=== PATIENT | male | born 1985 | race Caucasian/White ===

== ENCOUNTER 2017-01-22 19:19 | Emergency (ER) ==
[2017-01-22 19:23] VITALS: BP 224/92
[2017-01-22] MEDS ORDERED: KEFZOL IM ONE (19:50)
--- NOTE | 2017-01-22 19:51 | PROVIDER DOCUMENTATION ---
HPI-Musculoskeletal Pain/Inj - GENERAL Chief Complaint: Extremity Pain Stated Complaint: RT FOOT TOE PAIN Time Seen by Provider: 01/22/17 19:26 Source: patient - HX OF PRESENT ILLNESS-MUSKULOSKELTAL Nature of Presenting Problem: Pt is a 31 y/o M c chief complaint of swollen, painful R second toe. Pt states he noticed the toe was swollen today when he was taking a bath. Pt has a h/o diabetic neuropathy and does not recall injuring his toe. Pt has minimal pain. He recently had 3 toes amputated from his L foot. On arrival, pt is in minimal distress. Review of Systems - Adult - REVIEW OF SYSTEMS - ADULT Constitutional: reports: no symptoms reported. denies: chills, fatique Eyes: reports: no symptoms reported. denies: blurred vision, double vision Ears, Nose, Mouth & Throat: reports: no symptoms reported. denies: ear pain, nose pain, throat pain Cardiovascular: reports: no symptoms reported. denies: chest pain, orthopnea Respiratory: reports: no symptoms reported. denies: cough, shortness of breath Gastrointestinal: reports: no symptoms reported. denies: abdominal pain, nausea Genitourinary: reports: no symptoms reported. denies: dysuria, hematuria Musculoskeletal: reports: bone pain, joint pain, joint swelling Integumentary: reports: no symptoms reported. denies: itching, rash Neurological: reports: paresthesia. denies: numbness Psychiatric: reports: no symptoms reported. denies: anxiety, emotional problems Endocrine: reports: no symptoms reported. denies: cold intolerance, heat intolerance Hematologic/Lymphatic: reports: no symptoms reported. denies: blood clots, low blood count Allergic/Immunologic: reports: no symptoms reported. denies: allergic reactions , food allergy All Other Systems: Reviewed and Negative Past History - Adult - PAST MEDICAL HISTORY-ADULT Review of Records: reports: Old Records Reviewed, Nursing Assessment Review, Medications Reviewed, Social history reviewed & non-contributory. Major Childhood Illnesses: reports: denies history Cardiovascular: reports: [place] Respiratory: reports: denies history Gastrointestinal: reports: denies history Obstetrical/Gynecological: reports: denies history Genitourinary: reports: denies history Musculoskeletal: reports: denies history Neurological: reports: other (Neuropathy) Psychiatric: reports: bipolar, depression Endocrine/Immune: reports: Diabetes Diabetes Type: Type 2 Diabetes controlled by:: Insulin Dependent Other Conditions: reports: denies history - PRIOR SURGERIES/PROCEDURES Surgical/Procedure History: reports: recent surgery, cardiac stent, orthopedic ( extremity) (toe amputation), other (Defibrilator) - IMMUNIZATION STATUS Childhood Immunizations: See Nurse Assessment Flu Vaccine: See Nurse Assessment - FAMILY HISTORY Family History: reviewed, not pertinent - SOCIAL HISTORY Smoking: denies Substance Use: none/never Alcohol Use Frequency: never Living Situation: family Physical Exam-Injury Related - Physical Exam-Injury Related Initial Vital Signs Reviewed: Yes General Appearance: appears well, alert, no apparent distress Eyes: PERRL/EOMI, pink conjunctivae Head, Ears, Nose, Mouth & Throat: normocephalic/atraumatic, moist mucous membranes, normal ENT inspection Neck: non-tender, full range of motion, supple Respiratory: chest non-tender, lungs clear, normal breath sounds Cardiovascular: normal peripheral pulses, regular rate, rhythm, no edema Progress - PLAN OF CARE/RESULTS Progress/Plan/Lab Results: Orders Category Date Time Status Crutches DIRECTED Care 01/22/17 19:50 Active Post-Op Shoe DIRECTED Care 01/22/17 19:50 Active FOOT COMPLETE RIGHT [RAD] Stat Exams 01/22/17 19:26 Taken CefAZOLIN [Kefzol] Med 01/22/17 19:50 Discontinued 1 gm IM NOW ONE Vital Signs - 24 hr 01/22/17 19:22 Temperature 98.3 F Pulse Rate 115 H Respiratory 20 Rate Blood Pressure 224/92 O2 Sat by Pulse 100 Oximetry Departure - Departure Time of Disposition Order: 19:47 DIAGNOSIS: Diabetic foot Toe fracture, right Qualifiers: Encounter type: initial encounter Toe: lesser toe Fracture type: closed Phalanx : proximal Fracture alignment: displaced Qualified Code(s): S92.511A - Displaced fracture of proximal phalanx of right lesser toe(s), initial encounter for closed fracture Disposition: HOME 01 Certified Medical Emergency: Emergent Condition: Stable Additional Instructions: ED Follow Up Instructions: You have been treated by a care provider in the Emergency Department. These instructions are being provided to you so you can have an understanding of how to care for yourself upon discharge. Upon discharge from the Emergency Department, you are responsible for making arrangements for follow-up care by a physician of your choice. Take all prescribed medications as directed. Return to the Emergency Department immediately for any new or worsening symptoms. You may call the Physician Referral phone number at [phone] to obtain a list of Physicians who are taking new patients. Prescriptions: Clindamycin [Cleocin] 150 mg PO Q6HR #30 capsule Hydrocodone/APAP 7.5 mg/325 mg [[place]-7.5] 1 each PO Q6H PRN PRN #10 tablet PRN Reason: Pain Referrals: None,PCP [Primary Care Provider] - [facility] [Provider Group] - Call for Appoint. 1-2days (FOLLOW UP WITH ORTHO ON TUESDAY.) Attestation - Physician/ MARTÍNEZ Attestation Patient care was provided by Advanced Practice Provider:: Yes Advanced Practice Provider:: Slava Robertson Advanced Practice Provider documentation review:: The Mid-level provider documentation, treatment plan and medical decision making was reviewed by the physician who agrees with all treatment and medical decision making by the MLP.
[2017-01-22] MEDS ORDERED: STERILE WATER INJ. ONE (19:59)
--- NOTE | 2017-01-23 07:40 | Diag Imaging Result Document ---
PROCEDURE NAME: FOOT COMPLETE RIGHT - 01/22/2017 RIGHT FOOT THREE VIEWS: FINDINGS: There is a comminuted fracture to the proximal and mid proximal phalanx on the 2nd toe. There are multiple fracture fragments with displacement. Fracture does extend into the metatarsophalangeal joint. Soft tissue swelling is present. IMPRESSION: Comminuted fracture to the proximal 2nd toe.
== END 2017-01-22 20:45 | disposition home or self-care (01) ==
LOC: ED 19:19
DX: S92.511A Displaced fracture of proximal phalanx of right lesser toe(s), initial encounter for closed fracture (principal); E11.40 Type 2 diabetes mellitus with diabetic neuropathy, unspecified; M79.674 Pain in right toe(s); M25.474 Effusion, right foot; R20.9 Unspecified disturbances of skin sensation; I25.2 Old myocardial infarction; F32.9 Major depressive disorder, single episode, unspecified; F31.9 Bipolar disorder, unspecified; Z79.899 Other long term (current) drug therapy; Z95.5 Presence of coronary angioplasty implant and graft; Z95.810 Presence of automatic (implantable) cardiac defibrillator; Z79.4 Long term (current) use of insulin; Z79.82 Long term (current) use of aspirin; Z89.422 Acquired absence of other left toe(s)
CPT/HCPCS: J0690

== ENCOUNTER 2019-12-04 09:37 | Inpatient (IN) ==
[2019-12-04] MEDS ORDERED: ASPIRIN PO ONE (09:51)
[2019-12-04 10:34] LABS: BASO# 0.12 X1000 (0.0-0.2); BASO% 0.9 % (0.0-0.8); EOS# 0.41 X1000 (0.0-0.7); EOS% 3.2 % (0.0-10.0); HEMATOCRIT 49.4 % (42.0-52.0); HEMOGLOBIN 16.4 g/dL (14.0-18.0); IMM GRAN# 0.14 X1000 (0.0-0.04); IMM GRAN% 1.1 % (0.0-0.5); LYMPH# 3.54 X1000 (1.2-3.4); LYMPH% 27.8 % (20.5-51.1); MCH 28.1 PG (27-31); MCHC 33.2 g/dL (33-37); MCV 84.6 FL (81-99); MONO% 8.6 % (1.7-9.3); MPV 10.5 FL (7.4-10.4); NEUT# 7.41 X1000 (1.4-6.5); NEUT% 58.4 % (42.2-75.2); PLT 281 X1000 (130-400); RBC 5.84 XMIL (4.7-6.1); RDW 13.3 % (11.5-14.5); WBC 12.72 X1000 (4.8-10.8)
--- NOTE | 2019-12-04 10:37 | Diag Imaging Result Doc PS360 ---
EXAM: CHEST-2 VIEWS HISTORY: chest pain TECHNIQUE: Three views COMPARISON: 11/13/2018 FINDINGS: The lungs are well expanded. The heart is not enlarged. Left pacemaker. The vessels are not distended. There are no infiltrates. No pleural effusions. IMPRESSION: No acute abnormality. Electronically signed by Yousuf Aggarwal 12/04/2019 10:35 AM
[2019-12-04 10:48] LABS: INR 0.88; PTT 27.1 Seconds (22.3-41.8)
[2019-12-04 10:55] LABS: AGAP 13; ALB/GLOB RATIO 1.4; ALBUMIN 3.2 g/dL (3.5-5.0); ALKALINE PHOSPHATASE 72 U/L (32-122); BUN 16 mg/dL (8-22); CALCIUM 8.6 mg/dL (8.8-10.2); CHLORIDE 99 mmol/L (98-107); CK PROFILE 130 U/L (24-204); COSMO 276; CREATININE 1.1 mg/dL (0.7-1.2); ESTIMATED GFR > 60; GLUCOSE 149 mg/dL (70-104); GOT 14 U/L (10-34); GPT 18 U/L (10-44); POTASSIUM 4.6 mmol/L (3.5-5.1); SODIUM 136 mmol/L (136-145); TCO2 24 mmol/L (25-35); TOTAL PROTEIN 5.5 g/dL (6.3-8.3)
[2019-12-04 10:58] LABS: TOTAL BILIRUBIN < 0.15 mg/dL (0.20-1.00)
--- NOTE | 2019-12-04 11:19 | PROVIDER DOCUMENTATION ---
HPI-General Adult - General Chief Complaint: Chest Pain Stated Complaint: CHEST PAIN Time Seen by Provider: 12/04/19 10:34 Source: patient Allergies/Adverse Reactions: Patient Allergies Allergy/AdvReac Type Severity Reaction Status Date / Time No Known Allergies Allergy Verified 11/27/18 16:52 Home Medications: Home Medication List Medication Instructions Recorded Confirmed Last Taken Type Aspirin [Aspir-Low] 81 mg PO DAILY 01/22/17 12/04/19 12/04/19 History Lisinopril 40 mg PO DAILY 01/22/17 12/04/19 12/04/19 History Metformin [Glucophage] 1,000 mg PO BID CC 01/22/17 12/04/19 12/04/19 History Amlodipine Besylate 10 mg PO DAILY 09/23/18 12/04/19 12/04/19 History Gabapentin 300 mg PO TID 09/23/18 12/04/19 12/01/19 History Metoprolol Succinate 200 mg PO DAILY 09/23/18 12/04/19 1 Week Ago History ~11/27/19 Venlafaxine HCl [Venlafaxine HCl 75 mg PO DAILY 09/23/18 12/04/19 12/04/19 History ER] Venlafaxine HCl [Venlafaxine HCl 150 mg PO DAILY 09/23/18 12/04/19 12/04/19 History ER] Hydrocodone/Acetaminophen [[place] 1 ea PO Q6H PRN #15 tab 10/11/18 12/04/19 Unknown Rx 7.5-325 Tablet] Insulin Regular, Human [Novolin R] See Protocol SQ BID 11/13/18 12/04/19 12/04/19 History Ampicillin 2 gm/Ns 2 gm IV Q6H #168 ivpb 11/22/18 12/04/19 Unknown Rx - History of Present Illness -Gen Adult Nature of Presenting Problems: 34 YEAR OLD MALE WITH MEDICAL HISTORY OF 2 CA IN 2009 WITH 1 STENT PLACEMENT , HTN, DM I AND DEPRESSION CAME IN TODAY WITH CONCERN OF CHEST PAIN THAT STARTED TUESDAY AND LASTED FOR 2 HOURS INITIALLY WITH SHARP/STABBING SENATION THAT'S NONRADIATING AND 10/10. STATES HE ALSO HAD ANOTHER ONE THIS MORNING STARTING AT 7AM AND CONTINUED TO HAVE IT RIGHT NO AND ITS NON RATING BUT ONLY 5/10 RIGHT NOW. NOTHING MADE IT BETTER OR WORSE. FATHER WITH CA AT AGE 50. PER PATIENT, ITS HIS INDEX CHEST PAIN. Review of Systems - Adult - REVIEW OF SYSTEMS - ADULT ROS:: unobtainable per condition Constitutional: reports: no symptoms reported Eyes: reports: no symptoms reported Ears, Nose, Mouth & Throat: reports: no symptoms reported Cardiovascular: reports: chest pain Respiratory: reports: no symptoms reported Gastrointestinal: reports: no symptoms reported Genitourinary: reports: no symptoms reported Musculoskeletal: reports: no symptoms reported Integumentary: reports: no symptoms reported Neurological: reports: no symptoms reported Psychiatric: reports: no symptoms reported Past History - Adult - PAST MEDICAL HISTORY-ADULT Review of Records: reports: Old Records Reviewed Major Childhood Illnesses: reports: denies history Cardiovascular: reports: HTN, [place] Respiratory: reports: denies history Gastrointestinal: reports: denies history Obstetrical/Gynecological: reports: denies history Genitourinary: reports: denies history Musculoskeletal: reports: denies history Neurological: reports: other (Neuropathy) Psychiatric: reports: bipolar, depression Endocrine/Immune: reports: Diabetes Other Conditions: reports: denies history - PRIOR SURGERIES/PROCEDURES Surgical/Procedure History: reports: recent surgery, appendectomy, cardiac stent , 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), other (Defibrilator) - IMMUNIZATION STATUS Childhood Immunizations: See Nurse Assessment Flu Vaccine: See Nurse Assessment - FAMILY HISTORY Family History: reviewed, not pertinent Physical Exam-General - PHYSICAL EXAM-ADULT Initial Vital Signs Reviewed: Yes - CONSTITUTIONAL General Appearance: appears well, alert, no apparent distress - EYES Eyes: PERRL/EOMI - HEAD, EARS, NOSE, MOUTH & THROAT HENMT: normocephalic/atraumatic, moist mucous membranes, normal ENT inspection - NECK Neck: non-tender, full range of motion, supple - RESPIRATORY Respiratory: chest non-tender, lungs clear, normal breath sounds, no pleuratic chest pain, no respiratory distress, no accessory muscle use - CARDIOVASCULAR Cardiovascular: normal peripheral pulses, regular rate, rhythm, no edema, no gallop, no JVD - GASTROINTESTINAL (ABDOMEN) Abdominal Exam: normal bowel sounds, non tender, soft, no organomegaly, no puls atile mass - MUSCULOSKELETAL Back Exam: normal inspection, no CVA tenderness, no vertebral tenderness Extremity: normal range of motion, non-tender, normal gait, normal inspection - SKIN Integumentary: normal color, normal turgor, warm/dry - NEUROLOGIC Neurologic: grossly normal - PSYCHIATRIC Psych/Mental Status: normal mood/affect, normal thought content, normal thought process, oriented x 3 Progress - PLAN OF CARE/RESULTS Progress/Plan/Lab Results: Vital Signs - 8 hr 12/04/19 09:49 Temperature 98.5 F Pulse Rate 110 H Respiratory Rate 17 Blood Pressure 246/124 O2 Sat by Pulse Oximetry 96 Laboratory Results - last 24 hr 12/04/19 12/04/19 12/04/19 10:08 10:08 10:08 WBC 12.72 H RBC 5.84 Hgb 16.4 Hct 49.4 MCV 84.6 MCH 28.1 MCHC 33.2 RDW Std Deviation 13.3 Plt Count 281 MPV 10.5 H Immature Gran % (Auto) 1.1 H Neut % (Auto) 58.4 Lymph % (Auto) 27.8 [place] % (Auto) 8.6 Eos % (Auto) 3.2 Baso % (Auto) 0.9 H Immature Gran # (Auto) 0.14 H Neut # (Auto) 7.41 H Lymph # (Auto) 3.54 H [place] # (Auto) 1.10 H Eos # (Auto) 0.41 Baso # (Auto) 0.12 PT 12.0 INR 0.88 PTT (Actin FS) 27.1 Sodium 136 Potassium 4.6 Chloride 99 Carbon Dioxide 24 L Anion Gap 13 BUN 16 Creatinine 1.1 Estimated GFR/1.73 m2 > 60 BUN/Creatinine Ratio 15 Glucose 149 H Calculated Osmolality 276 Calcium 8.6 L Total Bilirubin < 0.15 L AST 14 ALT 18 Alkaline Phosphatase 72 Creatine Kinase 130 Troponin T High Sens Total Protein 5.5 L Albumin 3.2 L Globulin 2.3 Albumin/Globulin Ratio 1.4 12/04/19 10:08 WBC RBC Hgb Hct MCV MCH MCHC RDW Std Deviation Plt Count MPV Immature Gran % (Auto) Neut % (Auto) Lymph % (Auto) [place] % (Auto) Eos % (Auto) Baso % (Auto) Immature Gran # (Auto) Neut # (Auto) Lymph # (Auto) [place] # (Auto) Eos # (Auto) Baso # (Auto) PT INR PTT (Actin FS) Sodium Potassium Chloride Carbon Dioxide Anion Gap BUN Creatinine Estimated GFR/1.73 m2 BUN/Creatinine Ratio Glucose Calculated Osmolality Calcium Total Bilirubin AST ALT Alkaline Phosphatase Creatine Kinase Troponin T High Sens 10 Total Protein Albumin Globulin Albumin/Globulin Ratio Orders Category Date Time Status Cardiac Monitoring DIRECTED Care 12/04/19 09:51 Active Oxygen Therapy- ED Nursing DIRECTED Care 12/04/19 09:51 Active Saline Loc NOW Care 12/04/19 09:51 Active CHEST-2 VIEWS [RAD] Stat Exams 12/04/19 09:51 Completed CBC WITH ELECTRONIC DIFF [HEME] Stat Lab 12/04/19 10:08 Completed CK PROFILE [SP CHEM] Stat Lab 12/04/19 10:08 Completed COMPREHENSIVE METABOLIC PANEL [CHEM] Stat Lab 12/04/19 10:08 Completed PRO B-NATRIURETIC PEPTIDE Stat Lab 12/04/19 10:08 Received PROTIME WITH INR [COAG] Stat Lab 12/04/19 10:08 Completed PTT [COAG] Stat Lab 12/04/19 10:08 Completed TROPONIN T HIGH SENSITIVITY Stat Lab 12/04/19 10:08 Completed Aspirin Med 12/04/19 09:51 Discontinued 325 mg PO NOW ONE CP/SOB/Palp >45 yrs of Age Stat Oth 12/04/19 09:51 Ordered EKG [EKG] Stat Ther 12/04/19 09:51 Ordered Result Diagrams: 12/04/19 10:08 12/04/19 10:08 - REASSESSMENT Reassessment #1 Time Reassessed: 11:21 Status: other (HEART SCORE: H (1)E(0)A(0)R(2)T(0); I WILL REPEAT SECOND SET PATIENT IS HIGH RISK.) Reassessment #2 Time Reassessed: 13:03 Status: other (PENDING TROPONIN) Reassessment #3 Time Reassessed: 15:27 Status: other (SPOKE TO HOSPITALIST PERIPHERAL EDP EQUIPMENT OPERATOR WHO STATES PATIENT IS CLEAR FOR D/C AND OUTPATIENT NM STUDY. SPOKE TO DR. RODRIGUEZ; WHO STATES HE WILL COME AN EVALUATE THE PATIENT. APPRECIATE DR. RODRIGUEZ'S ASSISTANCE.) Reassessment #4 Time Reassessed: 19:43 Status: other (THERE WAS A MISCOMMUNICATION; PATIENT WAS SEEN BY DR. RODRIGUEZ WHO TOLD ME HE WANTS PATIENT BE ADMITTED TO THE HOSPITALIST TEAM SO HE CAN PERFORM CARDIAC CATH TOMORROW. WHILE DR. RODRIGUEZ WAS DOWN HERE IN THE ER EVALUATING THE PATIENT, I SAW HIM TALKING TO DR. JEFFERY AND I THOUGHT HE WAS TALKING DR. JEFFERY REGARING THE PATIENT; UNFORTNATLY, I WAS WRONG. I HAVE JUST SPOKE TO DR. DAVEY REGARDING THE MISCOMMUNICATION; WHO WILL COME DOWN AND EVALUATE AND ADMIT THE PATIENT. APPRECAITE DR. DAVEY'S ASSISTANCE.) - XRAY 1 XRAY Study: Chest ([facility] - [address] [facility], [address], [place] [address] [facility] - [address] [place] [address] Department of Imaging Patient: HIEU MAURERADM Date: 12/04/19MR#: [id number] : 1985ADM Status: PRE ERAcct#: [id number] Age/Sex: 34/MRoom/Bed: Loc: ED Ordering Physician: Jaime Chaney MD Family Physician: Manoj Reis MD Reason for Procedure: chest pain Signed EXAM: CHEST-2 VIEWS HISTORY: chest pain TECHNIQUE: Three views COMPARISON: 11/13/2018 FINDINGS: The lungs are well expanded. The heart is not enlarged. Left pacemaker. The vessels are not distended. There are no infiltrates. No pleural effusions. IMPRESSION: No acute abnormality. Electronically signed by Yousuf Aggarwal 12/04/2019 10:35 AM 12/04/19 1035 Interpreting Physician: Yousuf Aggarwal MD Dictated Date/Time: 12/04/19 1034 cc: Jaime Chaney MD; Manoj Reis MD) Departure - Departure Date of Disposition Decision: 12/04/19 Time of Disposition Decision: 19:45 DIAGNOSIS: NSTEMI (non-ST elevated myocardial infarction), Hypoglycemia Disposition: ADMITTED INPATIENT 09 Certified Medical Emergency: Emergent Condition: Fair Referrals and Follow-Ups: Manoj Reis MD [Primary Care Provider] - - Critical Care Note This patient required my direct & personal management of CC.: No Attestation - Physician/ MARTÍNEZ Attestation Patient care was provided by Advanced Practice Provider:: No The physician spent face to face time with patient:: Yes Advanced Practice Provider documentation review:: Supervising physician onsite and consulted in the evaluation and care of this patient. The physician did have a face to face encounter with the patient.
[2019-12-04] MEDS ORDERED: CATAPRES PO ONE (12:00)
[2019-12-04] MEDS ORDERED: NITROGLYCERIN SL ONE (13:59)
--- NOTE | 2019-12-04 14:15 | EKG Report ---
Test Performed on : 12/04/2019 2:06:04 PM Test Reason : REPEAT X1 RIGHT NOW Blood Pressure : / mmHG Vent. Rate : 095 BPM Atrial Rate : 095 BPM P-R Int : 170 ms QRS Dur : 110 ms QT Int : 380 ms P-R-T Axes : 047 041 020 degrees QTc Int : 477 ms Normal sinus rhythm. Normal ECG No previous ECGs available Unconfirmed Result
[2019-12-04] MEDS ORDERED: LOVENOX SUBQ SCH (16:00)
[2019-12-04] MEDS ORDERED: LOVENOX SUBQ ONE (16:44)
--- NOTE | 2019-12-04 17:06 | CARDIOLOGY CONSULTATION ---
DATE: 12/04/2019 CHIEF COMPLAINT: Chest pain. HISTORY OF PRESENT ILLNESS: Mr. Saha is a 34-year-old male with a history of type 1 diabetes, peripheral vascular disease. ICD implantation. He is not seeing Cardiology here but apparently was seeing Cardiology when he lived in [place]. I do not have any cardiac history available on the patient. He presented for evaluation of chest pain that lasted around 4 hours this morning. It began with minimal activity while he was doing laundry. It felt stabbing in nature to his left upper chest. There was no exertional component. He did have some sweating with it but he does not think that was significant as he is a hot natured person. He did have some heavy soreness in his left arm associated with the pain. It eventually resolved after around 4 hours. He had a similar episode to this on Tuesday again occurring with minimal exertion. He is not aware of a previous cardiac catheterizations although he has a defibrillator in place. PAST MEDICAL HISTORY: 1. Significant for type 1 diabetes. 2. Hypertension. 3. Diabetic neuropathy. 4. Peripheral vascular disease. It sounds like he had bilateral lower extremity amputations due to a combination of vascular as well as infectious issues. 5. Type 1 diabetes. 6. Hypertension. 7. Depression. SOCIAL HISTORY: He does not smoke but apparently previously did. No alcohol use. FAMILY HISTORY: Significant for hypertension. REVIEW OF SYSTEMS: A 10 system review of systems is negative except for the those things mentioned in HPI. PHYSICAL EXAMINATION: Vital Signs: He is afebrile. His heart rates are in the 90s to low 100s. His blood pressure most recently is 188/93. General: He is in no acute distress. HEENT: Oropharynx is moist. Poor dentition. Eye examination is pink conjunctivae. White sclerae. Neck: Examination shows no obvious thyromegaly or thyroid tenderness. Cardiovascular: He sounds to be in a regular rate and rhythm. He does not have any obvious murmurs. He has no S3. He has no lower extremity edema. He has no palpation to the left anterior. Chest Wall: There is an ICD in place. Chest: Exam is clear bilaterally. He has no increased work of breathing. Abdomen: Soft, nontender, nondistended. He has no obvious organomegaly. Skin: Warm and dry throughout without any rashes. Neurological: He is moving all extremities well. He has no lateralizing deficits. PERTINENT DATA: EKG shows sinus rhythm, otherwise unremarkable. His laboratory data demonstrates a white count of 12.7, hematocrit 49, platelet count of 281,000. His sodium is 136, potassium 4.6, his BUN is 16, creatinine is 1.1. His troponin initially started at 10 and increased 3 hours later to 64. His proBNP is 241. His albumin is 3.2. ASSESSMENT: Mr. Saha is a 34-year-old, type 1 diabetic with peripheral vascular disease who presented with chest pain. PLAN: We will check an echocardiogram. I have recommended cardiac catheterization on this patient given his trend in cardiac enzymes and chest discomfort. Risks, benefits, and alternatives have been explained to the patient. We will initiate him on Lovenox. In addition, we will restart his home medications of aspirin, furosemide, lisinopril and metoprolol. Laboratories will be checked in the morning. cc: Barber Berman MD
[2019-12-04] MEDS: APRESOLINE IV PRN (17:37)
[2019-12-04] MEDS: NITROGLYCERIN TOP SCH (17:46)
[2019-12-04] MEDS ORDERED: LABETALOL IV ONE (19:15)
[2019-12-04] MEDS: TYLENOL PO PRN (23:19)
[2019-12-05] MEDS: NITROGLYCERIN TOP SCH ×4 (01:00→16:57)
[2019-12-05] MEDS: APRESOLINE IV PRN ×2 (03:36→07:42)
[2019-12-05] MEDS ORDERED: LABETALOL IV PRN (04:00)
[2019-12-05] MEDS: MORPHINE IV PRN (06:10)
[2019-12-05 06:28] LABS: BASO# 0.18 X1000 (0.0-0.2); BASO% 1.6 % (0.0-0.8); EOS# 0.33 X1000 (0.0-0.7); EOS% 2.9 % (0.0-10.0); HEMATOCRIT 48.5 % (42.0-52.0); HEMOGLOBIN 16.3 g/dL (14.0-18.0); IMM GRAN# 0.16 X1000 (0.0-0.04); IMM GRAN% 1.4 % (0.0-0.5); LYMPH# 3.14 X1000 (1.2-3.4); LYMPH% 27.2 % (20.5-51.1); MCH 28.5 PG (27-31); MCHC 33.6 g/dL (33-37); MCV 84.9 FL (81-99); MONO# 0.68 X1000 (0.11-0.59); MONO% 5.9 % (1.7-9.3); MPV 10.7 FL (7.4-10.4); NEUT# 7.06 X1000 (1.4-6.5); PLT 263 X1000 (130-400); RBC 5.71 XMIL (4.7-6.1); RDW 13.4 % (11.5-14.5); WBC 11.55 X1000 (4.8-10.8)
[2019-12-05 06:43] LABS: INR 0.87; PROTIME 11.9 Seconds (11.0-16.0)
[2019-12-05 07:28] LABS: AGAP 13; BUN 17 mg/dL (8-22); CALCIUM 8.1 mg/dL (8.8-10.2); CHLORIDE 94 mmol/L (98-107); COSMO 270; CREATININE 0.9 mg/dL (0.7-1.2); ESTIMATED GFR > 60; GLUCOSE 232 mg/dL (70-104); MAGNESIUM 1.7 mg/dL (1.5-2.7); POTASSIUM 4.2 mmol/L (3.5-5.1); SODIUM 130 mmol/L (136-145); TCO2 23 mmol/L (25-35)
[2019-12-05 07:40] LABS: CHOLESTEROL 322 mg/dL (0-200); HDL 25 mg/dL (35-55); TRIGLYCERIDES 1986 mg/dL (39-160)
[2019-12-05] MEDS: ASPIRIN EC PO SCH ×2 (07:42→08:50)
[2019-12-05] MEDS: PRINIVIL PO SCH ×2 (07:43→08:51)
[2019-12-05] MEDS: TOPROL XL PO SCH ×2 (07:43→08:51)
[2019-12-05] MEDS: NORVASC PO SCH ×2 (07:43→08:50)
[2019-12-05] MEDS ORDERED: EFFEXOR XR PO SCH (09:00)
[2019-12-05] MEDS: NORCO-7.5 PO PRN (09:09)
[2019-12-05] MEDS: NEURONTIN PO SCH ×3 (09:09→20:10)
[2019-12-05] MEDS: EFFEXOR XR PO SCH (09:13)
--- NOTE | 2019-12-05 09:39 | PROGRESS NOTE ---
DATE: 12/05/2019 SUBJECTIVE: Patient reports feeling fine. No more episodes of chest pain. OBJECTIVE: Vital Signs: Temperature 97.6 degrees, heart rate 82, respiratory rate 16, blood pressure 199/113, O2 saturation 100% on room air. General: This is a morbidly obese 34-year- old male lying in bed in no acute distress. Cardiovascular: S1, S2 heard. No murmurs, gallops, or rubs. Regular rate and rhythm. Respiratory: Clear bilaterally to auscultation. No work of breathing or using accessory muscles. Abdomen: Soft, nontender to palpation. Bowel sounds present. No organomegaly. Extremities: No clubbing, cyanosis, or edema. Peripheral pulses present in all legs. Neurological: Patient alert and oriented x3. Moves all 4 extremities. LABORATORY DATA: Reviewed. ASSESSMENT AND PLAN: 1. Chest pain. 2. Coronary artery disease. 3. Peripheral vascular disease. 4. Uncontrolled hypertension. 5. Diabetic neuropathy. 6. Depression. At this point, patient has been evaluated by Cardiology and, considering his past medical history, he is going to have left heart catheterization today. Troponin has been getting higher. The patient clinically is doing fine. For uncontrolled hypertension, we are going to start this patient on metoprolol 5 mg IV 6 hours as scheduled. He may need to be on oral beta-blockers. We will continue with sliding scale insulin for diabetes mellitus. We will continue with current treatment for depression. We will see what the left heart catheterization shows today. cc: Raymundo Escalona MD
[2019-12-05] MEDS ORDERED: HEPARIN 1000 UNITS/NS 2,000 UNIT/1,000 ML IV.SOLN ONE ×2 (10:14→12:47)
[2019-12-05] MEDS ORDERED: ZOFRAN IV PRN (10:23)
[2019-12-05] MEDS ORDERED: VERSED ONE (14:35)
[2019-12-05] MEDS ORDERED: ANESTHESIA PB SET 88 IN 5742 ONE (14:36)
[2019-12-05] MEDS ORDERED: MORPHINE ONE ×2 (14:36→15:15)
[2019-12-05] MEDS ORDERED: NS 500 ML ONE (14:36)
--- NOTE | 2019-12-05 15:55 | EKG Report ---
Test Performed on : 12/05/2019 3:47:32 PM Test Reason : S/P Heart cath Blood Pressure : / mmHG Vent. Rate : 088 BPM Atrial Rate : 088 BPM P-R Int : 190 ms QRS Dur : 108 ms QT Int : 388 ms P-R-T Axes : 044 029 025 degrees QTc Int : 469 ms Normal sinus rhythm. Normal ECG When compared with ECG of 04-DEC-2019 14:06, (Unconfirmed) No significant change was found Confirmed by Justin CHRISTIANSON, Conrad Kern ([id number]) on 12/06/2019 12:23:46 PM
[2019-12-05] MEDS ORDERED: NS 1,000 ML IV SCH (16:00)
[2019-12-05] MEDS: LIPITOR PO SCH (20:10)
[2019-12-05] MEDS: LASIX PO SCH (20:10)
--- NOTE | 2019-12-05 21:58 | CARDIOLOGY PROGRESS NOTE ---
DATE: 12/05/2019 SUBJECTIVE: Mr. Saha underwent his cardiac catheterization today. He is not presently having any problems with chest pain. OBJECTIVE: Vital signs: He is afebrile, heart rate 82. Blood pressure is 125/75. General: He is in no acute distress. Cardiovascular: He sounds to be in a regular rate and rhythm. He has no murmurs. He has no obvious hematoma in the right groin. Chest exam: Clear bilaterally. He has no increased work of breathing. Abdomen: Soft, nontender. PERTINENT DATA: His white count is 11.5, hematocrit 48, platelet count is 263,000. Sodium 130, potassium 4.2, BUN 17, creatinine 0.9. His magnesium level is 1.7. His total cholesterol was 322 with an HDL of 25. ASSESSMENT: Mr. Saha is a 34-year-old male who presented with a non-ST elevation myocardial infarction. PLAN: We will initiate load with Effient at 60 mg followed by 10 mg daily. I will stop his nitroglycerin paste and place him on isosorbide mononitrate. We will continue to try to treat his risk factors. He is on high-intensity statin therapy. Tentative plan will be to transfer to [facility] on Tuesday for potential intervention to the ramus branch. cc: Barber Berman MD
[2019-12-06] MEDS: HUMULIN R SUBQ SCH ×5 (01:19→20:20)
[2019-12-06] MEDS ORDERED: LASIX IV ONE (01:45)
[2019-12-06 01:51] LABS: ALLEN TEST YES; BE 1.6 mmoll (-3.0-3.0); BLOOD TYPE ARTERIAL; HCO3-(ACT) 26.2 mmoll (20.0-26.0); METHB 0.7 % (0.0-1.5); O2(CT) 24.1 mL/dL (15.0-23.0); O2HB 97.6 % (95.0-99.0); PCO2(98.6) 39 mmHg (35-45); PO2(98.6) 408 mmHg (60-100); SAMPLE BLOOD; SAO2 99.1 % (95.0-100.0); THB 16.8 g/dL (11.5-17.4); pH(98.6) 7.43 (7.35-7.45)
[2019-12-06 02:02] LABS: URINE SOURCE CATH
[2019-12-06 02:09] LABS: AGAP 9; BUN 13 mg/dL (8-22); CALCIUM 8.7 mg/dL (8.8-10.2); CHLORIDE 97 mmol/L (98-107); COSMO 276; CREATININE 1.1 mg/dL (0.7-1.2); ESTIMATED GFR > 60; GLUCOSE 241 mg/dL (70-104); MAGNESIUM 1.8 mg/dL (1.5-2.7); POTASSIUM 4.8 mmol/L (3.5-5.1); SODIUM 134 mmol/L (136-145); TCO2 28 mmol/L (25-35)
[2019-12-06 02:09] LABS: BILIRUBIN URINE NEGATIVE (NEGATIVE); BLOOD URINE TRACE (NEGATIVE); COLOR STRAW; GLUCOSE URINE 200 mg/dL (NEGATIVE); KETONE URINE NEGATIVE (NEGATIVE); LEUKOCYTES URINE NEGATIVE (NEGATIVE); NITRITE URINE NEGATIVE (NEGATIVE); PROTEIN URINE 200 mg/dL (NEGATIVE); TURBIDITY URINE CLEAR (CLEAR); UR EPITHELIAL CELLS <10 /HPF (<10); URINE BACTERIA NEGATIVE /HPF; URINE RBC <10 /HPF (<10); URINE WBC <10 /HPF (<10); UROBILINOGEN URINE NORMAL (NORMAL)
[2019-12-06 02:14] LABS: HEMOGLOBIN A1C 8.1 % (4.8-6.0)
--- NOTE | 2019-12-06 02:42 | HISTORY AND PHYSICAL ---
PRIMARY CARE PROVIDER: Manoj Reis MD CHIEF COMPLAINT: Chest pain. HISTORY OF PRESENT ILLNESS: Mr. Saha is a 34-year-old male who has a past medical history reportedly of coronary artery disease, status post myocardial infarction with stent placement and ICD implantation. The patient reports that this was placed in [place] in 2009. He also has other past medical history of diabetes mellitus, hypertension, depression, diabetic neuropathy and peripheral vascular disease. The patient states that on Tuesday he did begin having some chest pain. He reports this pain was within his left chest and did radiate down his left arm. He stated this subsided. The patient reports that he had this pain again on Tuesday, though it subsided again as well. He states on Tuesday, it did come back and did remain constant. It did radiate down his left arm. It was sharp left chest pain. He did report associated symptoms of feeling dizzy and lightheaded. He said that on all 3 of these episodes, it came on when he was doing some laundry and washing clothes. I asked the patient if he would consider this is a strenuous activity for him, and he said yes. He does have bilateral fctjb-ljr-ygvl amputations noted secondary to peripheral vascular disease and diabetic foot wounds, and he states that doing laundry is a strenuous activity for him, given his limited mobility. He denies any headache, shortness of breath or cough. He denies any abdominal pain. He denies any nausea, vomiting or diarrhea. The patient reports he does have some problems with chronic constipation and does normally have a bowel movement every 2-3 days. He did have a bowel movement this morning. He denies any hematochezia or melena. He denies any dysuria or urinary frequency. The patient does have some diabetic neuropathy, but other than this he does not report any new onset of pain, numbness, tingling or swelling in extremities. Upon evaluation in the ER he was noted to have initially a troponin that was within normal limits, though throughout his ER stay this did continue to increase, up to a point of 117 on the troponin T high-sensitivity. He still is reporting some intermittent chest pain but this is improved with morphine. EKG showed normal sinus rhythm at a rate of 95 with a QTc of 477. Chest x-ray showed no acute abnormality. The patient did take an aspirin, a full dose prior to arrival to the ER. They did call technology instructor Dr. Berman for consultation. Dr. Berman did see the patient in the ER. He did recommend [*]history, chest pain and elevated troponin that he be admitted for further evaluation and possible cardiac catheterization. We did give him a onetime dose of Lovenox as well. The patient will be placed in the PVC unit for close monitoring. REVIEW OF SYSTEMS: A 14-point review of systems was conducted with the patient and all were negative except for pertinent positives mentioned in the above HPI. PAST MEDICAL HISTORY: 1. Reported history of coronary artery disease, status post myocardial infarction with stent placement. The patient states this was performed in [place] in 2009. 2. Reported ICD placement. Upon asking the question why he had a defibrillator placed, he stated that it was for a heart rate greater than 240. This was reportedly placed in [place] as well. 3. Diabetes mellitus. 4. Hypertension. 5. Diabetic neuropathy. 6. Depression. 7. Peripheral vascular disease. 8. History of diabetic foot wounds, for which he did have to undergo bilateral yarlv-ror-xcrm amputation. This was further complicated by his peripheral vascular disease. 9. Chronic constipation. PAST SURGICAL HISTORY: 1. Right eye surgery. 2. Cardiac stent placement. 3. Bilateral below-knee amputations. 4. Appendectomy. 5. ICD placement. SOCIAL HISTORY: The patient is a former smoker. He states that he did smoke 1-3 packs per day for 10 years, though quit smoking 10 years ago. He denies any alcohol or illicit drug use. FAMILY HISTORY: Positive for his mother having a history of diabetes mellitus and thyroid cancer. His father had a history of lung cancer with metastases to the brain. ALLERGIES: The patient has no known allergies. HOME MEDICATIONS: 1. Amlodipine 10 mg p.o. daily. 2. Aspirin 81 mg p.o. daily. 3. Gabapentin 300 mg p.o. t.i.d. 4. [place] 7.5 mg 1 p.o. q.6 hours p.r.n. for pain. 5. Novolin R per sliding scale b.i.d. 6. Lisinopril 40 mg p.o. daily. 7. Metformin 1000 mg p.o. b.i.d. 8. Metoprolol 200 mg p.o. daily. 9. Venlafaxine HCL extended-release, total of 225 mg daily. LABORATORY DATA: White blood cell count is 12,720, hemoglobin 16.4, hematocrit 49.4, platelet count is 281,000. PT 12, INR 0.88, PTT is 27.1. Sodium 136, potassium 4.6, chloride 99, serum bicarbonate is 24, BUN 16, creatinine 1.1 with GFR greater than 60, glucose 149, calcium 8.6. Liver function tests within normal limits. CK 130. Initial troponin was 10, though it did continue to elevate from 10 to 64, to 117. DIAGNOSTIC DATA: EKG showed normal sinus rhythm at a rate of 95 with a QTc of 477. Chest x-ray did not show any acute abnormalities. PHYSICAL EXAMINATION: VITAL SIGNS: Temperature 97.6 degrees, heart rate 88, respirations 22, blood pressure is 143/103, oxygen saturation is 96% on room air. GENERAL: Mr. Saha is a 34-year-old obese male who was resting in the inpatient bed. He was awake, alert and oriented to person, place, time and situation. HEENT: Head is atraumatic, normocephalic. Pupils are equal, round and reactive to light, were 3 mm bilaterally and brisk. Oral mucosa is moist. Oropharynx clear. NECK: Supple. Trachea midline. CARDIOVASCULAR: The patient has S1, S2 present. No murmurs, gallops or rubs appreciated, with a regular rate and rhythm. PULMONARY: The patient has symmetrical chest expansion bilaterally. Lung sounds clear to auscultation in bilateral full coello. ABDOMEN: Soft, nontender. Does appear to be distended. The patient does have a protuberant abdomen noted. Bowel sounds present in all 4 quadrants, were normoactive. EXTREMITIES: The patient does have noted bilateral xeeep-tjl-fsts amputations noted, though he is able to move all extremities. There is no cyanosis or edema noted. Radial pulses were 2+ bilaterally. INTEGUMENTARY: The patient's skin is pink, warm and dry. NEUROLOGICAL: The patient is alert and oriented to person, place, time and situation. There are no focal neurological deficits noted. ASSESSMENT AND PLAN: 1. Chest pain. The patient has already been evaluated by Cardiology in the emergency room. We will follow their recommendations. We will repeat troponin. We will do echocardiogram in the morning. It does look as though Dr. Berman does plan to take the patient for a cardiac catheterization as well. We will continue his regularly prescribed cardiac medications. We have placed p.r.n. orders for blood pressure control also. The patient already did receive an aspirin. Dr. Berman did order the patient to receive a Lovenox onetime dose. He will be placed in the PVC unit for close monitoring with continuous pulse oximetry and frequent vital signs. We will provide nitroglycerin for chest pain as well as to assist with his blood pressure control. We will also place p.r.n. morphine orders as well. 2. Hypertension. We will continue his regularly prescribed antihypertensive medications. We also have placed p.r.n. antihypertensives if needed. 3. Diabetes mellitus. We will place a sliding scale insulin with pattern fingerstick blood sugars. 4. Diabetic neuropathy. We have continued the patient's gabapentin. 5. History of depression. We have continued the patient's Effexor. 6. History of implanted cardioverter-defibrillator placement. The patient has been placed on the PVC unit with telemetry for close monitoring. We will repeat BMP and magnesium in the morning. We have added on hemoglobin A1c. Further orders and recommendations pending hospital course, diagnostic studies and physician evaluation. Dictated by JOSE C Chapman for Aj Blackwood MD cc: Aj Blackwood MD
[2019-12-06 05:53] LABS: MODALITY BI PAP
--- NOTE | 2019-12-06 06:39 | Diag Imaging Result Doc PS360 ---
CHEST-PORTABLE - 12/06/2019 INDICATION: Decreased Sa02 COMPARISON: 12/04/2019 FINDINGS: Stable pacemaker. Lung volumes are lower. There is increasing patchy linear atelectasis in the lung bases. Heart size is borderline enlarged. No pneumothorax or pleural effusion. IMPRESSION: Nonspecific findings. Electronically signed by Greg Head 12/06/2019 6:37 AM
[2019-12-06] MEDS: EFFIENT PO ONE ×2 (07:57→09:39)
[2019-12-06] MEDS: LASIX PO SCH (07:59)
[2019-12-06] MEDS: NORVASC PO SCH (07:59)
[2019-12-06] MEDS: ASPIRIN EC PO SCH (07:59)
[2019-12-06] MEDS: EFFEXOR XR PO SCH (08:00)
[2019-12-06] MEDS: PRINIVIL PO SCH (08:01)
[2019-12-06] MEDS: TOPROL XL PO SCH (08:01)
[2019-12-06] MEDS: IMDUR PO SCH (08:02)
[2019-12-06] MEDS: NEURONTIN PO SCH ×3 (08:02→20:21)
[2019-12-06] MEDS ORDERED: MAGNESIUM SULFATE 2 GM/S.W.I. 2 GM/50 ML IVPB IV ONE (08:14)
--- NOTE | 2019-12-06 09:10 | CARDIOLOGY PROGRESS NOTE ---
DATE: 12/06/2019 SUBJECTIVE: Mr. Saha reports no troubles overnight. He has no chest pain. PHYSICAL EXAMINATION: Vital Signs: Afebrile. Heart rate 86, blood pressure 159/92. General: No acute distress. Cardiovascular: He sounds to be in a regular rate and rhythm. He has no murmurs. He has no S3. Extremities: He has no obvious hematoma in the right groin site. PERTINENT DATA: His magnesium level is 1.8. BUN 13, creatinine is 1.1. Sodium 134. ASSESSMENT: Mr. Saha is a 34-year-old gentleman with a xhu-MR-vkkyylhlm myocardial infarction. PLAN: We elevated his antihypertensives/antianginals by adding in nitrates. He is on high- intensity statin. I repleted his magnesium. Laboratories have been ordered for in the morning, as well as a nothing by mouth status. He will either be transferred this afternoon or in the morning for potential PCI in the morning. cc: Barber Berman MD
--- NOTE | 2019-12-06 10:19 | PROGRESS NOTE ---
DATE: 12/06/2019 SUBJECTIVE: The patient reports feeling fine. Chest pain is gone. OBJECTIVE: Vital Signs: Temperature 97.9, heart rate 86, respiratory rate 12, blood pressure 159/92, O2 saturation 99% on room air. General: This is a morbidly obese, 34-year-old, male, lying in bed in no acute distress. Cardiovascular: S1 and S2 heard. No murmurs, gallops, or rubs. Regular rate and rhythm. Respiratory: Clear bilaterally to auscultation. No work of breathing or using accessory muscles. Abdomen: Soft, nontender to palpation. Bowel sounds present. No organomegaly. Extremities: No clubbing, cyanosis, or edema. Peripheral pulses present in both legs. Neurological: The patient alert and oriented x3. Moves all 4 extremities. LABORATORY DATA: Reviewed. ASSESSMENT: 1. Non ST-elevation myocardial infarction. 2. Coronary artery disease. 3. Peripheral vascular disease. 4. Uncontrolled hypertension. 5. Diabetic neuropathy. 6. Depression. PLAN: The patient reports no chest pain. He underwent left heart catheterization yesterday. I do not have the final report from that, but he will be transferred, according to Cardiology, to [facility] for potential PCI in the morning. For diabetes, will continue with sliding scale insulin and Accu-Chek before meals and also at bedtime. For diabetic neuropathy, will continue home medications. For uncontrolled hypertension, will continue with current management. Blood pressure is better controlled with systolic blood pressure between 140 and 160. cc: Raymundo Escalona MD MTDRadha
[2019-12-06] MEDS: MORPHINE IV PRN (14:05)
--- NOTE | 2019-12-06 14:17 | ECHO REPORT ---
ORDER DATE: 12/06/2019 INDICATION: Non-ST elevation myocardial infarction. FINDINGS: 1. Right atrium appears normal in size. 2. Trace tricuspid regurgitation. Insufficient data to estimate RV systolic pressure. 3. Normal RV size and systolic function. 4. No significant pulmonic insufficiency. 5. Normal left atrial size with a dimension of 4 cm. Volume index of 15. 6. No mitral prolapse. Trace mitral regurgitation. No mitral stenosis. 7. Normal LV size, end-diastolic dimension of 4.3 cm. Moderate left ventricular hypertrophy with interventricular septal wall thickness of 1.5 cm. Normal LV systolic function. The estimated EF is 55%. There is no obvious segmental wall motion abnormalities. 8. Aortic valve appears somewhat sclerotic, but does not appear to be stenotic. There is no insufficiency. 9. Aorta appears normal in visualized segments. 10. No pericardial effusion seen. cc: Barber Berman MD
[2019-12-06] MEDS: LIPITOR PO SCH (20:21)
[2019-12-06] MEDS: TYLENOL PO PRN (20:29)
[2019-12-07] MEDS: NORCO-7.5 PO PRN ×2 (04:09→13:08)
[2019-12-07 06:09] LABS: INR 0.9; PROTIME 12.2 Seconds (11.0-16.0)
[2019-12-07 06:33] LABS: AGAP 8; BUN 18 mg/dL (8-22); CALCIUM 8.8 mg/dL (8.8-10.2); CHLORIDE 97 mmol/L (98-107); COSMO 278; CREATININE 1.1 mg/dL (0.7-1.2); ESTIMATED GFR > 60; GLUCOSE 244 mg/dL (70-104); MAGNESIUM 1.9 mg/dL (1.5-2.7); POTASSIUM 4.8 mmol/L (3.5-5.1); SODIUM 134 mmol/L (136-145); TCO2 29 mmol/L (25-35)
[2019-12-07] MEDS: HUMULIN R SUBQ SCH ×2 (06:34→10:51)
[2019-12-07 06:46] LABS: BASO# 0.31 X1000 (0.0-0.2); BASO% 3.2 % (0.0-0.8); EOS# 0.31 X1000 (0.0-0.7); EOS% 3.2 % (0.0-10.0); HEMATOCRIT 51.3 % (42.0-52.0); HEMOGLOBIN 16.9 g/dL (14.0-18.0); IMM GRAN# 0.13 X1000 (0.0-0.04); IMM GRAN% 1.3 % (0.0-0.5); LYMPH# 2.06 X1000 (1.2-3.4); MCH 28.2 PG (27-31); MCHC 32.9 g/dL (33-37); MCV 85.6 FL (81-99); MONO# 0.79 X1000 (0.11-0.59); MPV 10.4 FL (7.4-10.4); NEUT# 6.22 X1000 (1.4-6.5); NEUT% 63.3 % (42.2-75.2); PLT 170 X1000 (130-400); RBC 5.99 XMIL (4.7-6.1); RDW 13.6 % (11.5-14.5); WBC 9.82 X1000 (4.8-10.8)
[2019-12-07] MEDS: NEURONTIN PO SCH (08:25)
[2019-12-07] MEDS: NORVASC PO SCH (08:25)
[2019-12-07] MEDS: EFFEXOR XR PO SCH (08:26)
[2019-12-07] MEDS: LASIX PO SCH (08:26)
[2019-12-07] MEDS: IMDUR PO SCH (08:26)
[2019-12-07] MEDS: PRINIVIL PO SCH (08:26)
[2019-12-07] MEDS: ASPIRIN EC PO SCH (08:26)
[2019-12-07] MEDS: TOPROL XL PO SCH (08:27)
[2019-12-07] MEDS ORDERED: EFFIENT PO SCH (09:00)
--- NOTE | 2019-12-07 09:56 | PROGRESS NOTE ---
DATE: 12/06/2019 SUBJECTIVE: Patient reports feeling fine. No more episodes of chest pain noted. No chest discomfort or pressure. OBJECTIVE: Vital Signs: Temperature 97.9 degrees, heart rate 71 respiratory rate 19, blood pressure 132/92. O2 saturation 96% on room air. General: This is an extremely morbidly obese, 34-year-old male, lying in bed, in no acute distress. Cardiovascular: S1, S2 heard. No murmurs, gallops, or rubs. Regular rate and rhythm. Respiratory: Clear bilaterally to auscultation. No work of breathing or using accessory muscles. Abdomen: Soft. Nontender to palpation. Bowel sounds present. No organomegaly. Extremities: No clubbing, cyanosis, or edema. Peripheral pulses present in both legs. Neurologic Exam: Patient alert oriented x3. Moves 4 extremities. LABORATORY DATA: Reviewed. ASSESSMENT AND PLAN: 1. Non ST-segment elevation myocardial infarction. 2. Coronary artery disease. 3. Peripheral vascular disease. 4. Uncontrolled hypertension. 5. Diabetic neuropathy. 6. Depression. DISPOSITION: At this point, patient is clinically stable. I was not able to look at any notes from left heart catheterization. At this point, patient is awaiting a bed in the [facility] for further treatment. For the rest of medical conditions, we will continue basically with home medications. cc: Raymundo Escalona MD
[2019-12-07 11:45] VITALS: BP 165/102
--- NOTE | 2019-12-07 11:47 | CARDIAC CATH REPORT ---
PROCEDURE PERFORMED: 1. Left heart catheterization. 2. Selective coronary angiography. 3. Left ventriculography. 4. Entry site, right femoral artery. CATHETERS USED: A 5-Kazakh JL4, 3DRC, and angled pigtail. TECHNIQUE: After intravenous sedation with morphine and Versed, local anesthesia with lidocaine was applied over right femoral artery. Arterial access was established with placement of a 5- Kazakh sheath in the right femoral artery using modified Seldinger technique. Selective coronary angiography was performed followed by left heart catheterization, left ventriculography. Upon completion of procedure, arterial sheath was removed from right femoral artery and hemostasis facilitated with manual pressure. The patient tolerated the procedure without apparent complications. FINDINGS: Hemodynamics: Aortic pressure 148/92 with a mean of 116. Left ventricular pressure 159/EDP of 30. Comments on hemodynamics: There is no significant gradient across aortic valve on pullback from left ventricle. ANGIOGRAPHY: Left ventriculogram: 1. The left ventricle is of normal size without focal wall motion abnormality evident on NINA projection. Estimated left ventricular ejection fraction approximately 50%. There is no significant mitral regurgitation. 2. Left main coronary: Left main coronary is free of significant coronary stenosis. 3. Left anterior descending coronary artery: The left anterior descending coronary is a large vessel that extends well around left ventricular apex. There is mild (approximately 20 to 30 percent) smooth narrowing at midvessel. The first diagonal branch is a small to medium size vessel with a subtotal stenosis proximally. 4. Ramus intermedius branch: A large branching ramus intermedius branch is present. There is a severe (80 to 90 percent) stenosis proximally that encompasses the origin of a small to medium size sub branch of the ramus intermedius. 5. Left circumflex coronary: Left circumflex coronary is a relatively smaller caliber vessel and is occluded proximally. The very distal left circumflex coronary can be seen filling via inve-zo-mobn collaterals. 6. Right coronary: The dominant right coronary demonstrates a moderate (40 to 50 percent) stenosis proximally. CONCLUSIONS: 1. Low normal left ventricular systolic function without focal wall motion abnormality evident on NINA projection. 2. Elevated left ventricular end-diastolic pressure. 3. Right dominant coronary anatomy as described with subtotal stenosis in small to medium size first diagonal branch, severe stenosis in large ramus intermedius branch encompassing origin of small to medium size side branch of ramus intermedius, and mild to moderate proximal stenosis of dominant right coronary. cc: Carl Osuna MD [facility]
--- NOTE | 2019-12-08 12:24 | DISCHARGE SUMMARY ---
ADMISSION DATE: 12/04/2019 DISCHARGE DATE: 12/07/2019 DISCHARGE DIAGNOSES: 1. Non ST-segment elevation myocardial infarction. 2. Hypertension. 3. Diabetes mellitus type 2. 4. History of ICD placement. 5. Diabetic neuropathy. 6. Depression. CONSULTATIONS: Dr. Barber Berman from Cardiology. PROCEDURES: 1. Chest x-ray done on admission showed no acute abnormality. 2. Cardiac catheterization performed by Dr. Paul showed low normal left ventricular systolic function without focal wall motion abnormality. Right dominant coronary anatomy with subtotal stenosis in a small to medium size 1st diagonal branch, severe stenosis in the large ramus intermedius branch encompassing origin of the small to medium side branch of ramus intermedius. HOSPITAL COURSE: Isael is a 34-year-old male with history of coronary artery disease status post myocardial infarction with stents, placement of ICD. He presented to the emergency department complaining of some chest pain. Patient evaluated by Cardiology. They think that this patient needs to have a left heart catheterization in view of past medical history. We found out this patient has had non ST-segment elevation myocardial infarction on report of the catheterization as we mentioned above. So plan was to send this patient to [facility] for further management. The patient is going to be transported by ambulance. The patient is being discharged in stable condition. cc: Raymundo Escalona MD
== END 2019-12-07 13:23 | disposition short-term general hospital (02) | DRG 281 ==
LOC: ED 09:37 → SUATTDRO 22:25 → EDIPHOLD 22:25 → 2N 12-05 03:32
PROVIDERS: ATTEND Internal Medicine